=== PATIENT | female | born 1985 | race Caucasian/White ===

== ENCOUNTER 2022-08-07 06:45 | Day surgery (SDC) | payer OTHER ==
[~2022-08-07] VITALS: Ht 149.9 cm; Wt 54.0 kg
[2022-08-07] VITALS (236 sets, daily range): BP systolic 47–197; BP diastolic 28–173
[2022-08-07 08:06] LABS: BASO% 0.8 % (0-3); EOS% 1.2 % (0-8); HEMATOCRIT 35.6 % (37.0-47.0); HEMOGLOBIN 11.6 g/dl (12.0-16.0); IMMATURE GRANULOCYTES 0.2 % (0.0-5.0); LYMPH% 25.2 % (15-41); MEAN CELL VOLUME 103.2 fL CALC (80.0-100.0); MEAN CORPUSCULAR HGB 33.6 pG CALC (26.0-32.0); MEAN CORPUSCULAR HGB CONC 32.6 g/dL CAL (32.0-36.0); MONO% 11.8 % (2-13); NEUT# 3.08 thou/uL (2.00-7.15); NEUT% 60.8 % (42-76); RED BLOOD COUNT 3.45 mill/uL (4.20-5.60)
[2022-08-07 08:13] LABS: ALBUMIN 4.1 g/dL (3.2-5.0); ALKALINE PHOSPHATASE 139 u/l (38-126); ANION GAP 12 (6-22 (CALC)); BILIRUBIN, TOTAL 0.2 mg/dL (0.02-1.3); BUN 8 mg/dL (7-17); BUN/CREATININE RATIO 14 (12-20 (CALC)); CARBON DIOXIDE 25 mmol/l (22-30); CHLORIDE 103 mmol/l (95-108); CREATININE 0.6 mg/dL (0.5-1.0); GFR FOR AFR.AMER. > 60 ML/MIN (>=60 (CALC)); GFR OTHER RACES > 60 ML/MIN (>=60 (CALC)); POTASSIUM 4.1 mmol/l (3.5-5.1); SGOT/AST 52 u/l (14-36); SODIUM 136 mmol/l (137-146); TOTAL PROTEIN 6.6 g/dL (6.3-8.2)
[2022-08-07] MEDS ORDERED: NALTREXONE50 MG PO (15:16)
[2022-08-07] MEDS ORDERED: KLONOPIN2 MG PO (15:17)
[2022-08-07] MEDS ORDERED: CLONIDINE0.1 MG PO (15:17)
[2022-08-08 04:05] VITALS: BP 111/39
[2022-08-08 06:04] LABS: ALBUMIN 3.7 g/dL (3.2-5.0); ALKALINE PHOSPHATASE 99 u/l (38-126); ANION GAP 12 (6-22 (CALC)); BUN 9 mg/dL (7-17); BUN/CREATININE RATIO 16 (12-20 (CALC)); CARBON DIOXIDE 20 mmol/l (22-30); CHLORIDE 110 mmol/l (95-108); CREATININE 0.5 mg/dL (0.5-1.0); GFR FOR AFR.AMER. > 60 ML/MIN (>=60 (CALC)); GFR OTHER RACES > 60 ML/MIN (>=60 (CALC)); MAGNESIUM 2.1 mg/dL (1.6-2.3); POTASSIUM 4.4 mmol/l (3.5-5.1); SGOT/AST 45 u/l (14-36); SODIUM 137 mmol/l (137-146); TOTAL PROTEIN 6.1 g/dL (6.3-8.2)
[2022-08-08 06:07] LABS: BILIRUBIN, TOTAL 0.3 mg/dL (0.02-1.3)
[2022-08-08 07:13] VITALS: BP 116/66
[2022-08-08 07:51] VITALS: BP 116/66
== END 2022-08-08 16:17 | disposition home or self-care (01) | DRG 897 ==
LOC: MS2 06:45 → ANR 06:45 → MS2 08-08 16:17 → ANR 08-08 16:17
PROVIDERS: ATTEND Anesthesiology
DX: F11.20 Opioid dependence, uncomplicated (principal)
CPT/HCPCS: J2354; J3475